=== PATIENT | female | born 2000 | race Caucasian/White ===

== ENCOUNTER 2022-04-09 10:42 | Emergency (ER) | payer OTHER, SELFPAY ==
[2022-04-09] VITALS (14 sets, daily range): BP systolic 106–123; BP diastolic 68–84; PULSE 62–102; RESP 15–19; O2SAT 100
--- NOTE | 2022-04-09 11:05 | ECG_ITS ---
Measurements Intervals [place] Rate: 68 P: 9 MI: 127 QRS: 72 QRSD: 72 T: 39 QT: 334 QTc: 357 Interpretive Statements SINUS RHYTHM NORMAL ECG NO PREVIOUS ECG AVAILABLE FOR COMPARISON Electronically Signed On 04-09-2022 11:47:59 SENIOR ENVIRONMENTAL PRACTICE LEADER by Carlitos Newby D.O.
--- NOTE | 2022-04-09 11:39 | ED.ARRPALP ---
HPI - Arrhythmia/Palpitations General Chief Complaint: Arrhythmia/Palpitations Stated Complaint: afib Time Seen by Provider: 04/09/22 11:01 History of Present Illness HPI narrative: 21-year-old female presents to the emergency room today for complaints of feeling like her heart is racing. She started having episodes of tachycardia yesterday evening. She says that she feels lightheaded and tired whenever it happens. Reports feeling dizzy at times. Denies having any chest pain. She does report that she can feel it start. She has had feelings like her heart beats fast in the past but this seems worse than what she has had before. She has never been seen or evaluated by cardiology. Currently her heartbeat is around 100 and her EKG is sinus rhythm. No significant past medical history but patient reports that she has an extensive family history of heart problems. Related Data Allergies Allergy/AdvReac Type Severity Reaction Status Date / Time No Known Allergies Allergy Verified 04/09/22 11:10 Review of Systems Review of Systems: CONSTITUTIONAL: Denies fever, chills, or sweats. CARDIOVASCULAR: as per HPI RESPIRATORY: Denies cough or dyspnea. GASTROINTESTINAL: Denies abdominal pain, nausea, vomiting, or diarrhea. GENITOURINARY: Denies dysuria or hematuria. SKIN: Denies rash or itching. MUSCULOSKELETAL: no complaints NEUROLOGIC: Reports feeling dizzy or lightheaded when heart racing Exam Narrative: GENERAL: Well-appearing, well-nourished, and in no acute distress. HEAD: Normocephalic, atraumatic. NECK: Supple. No adenopathy or masses. No carotid bruits or JVD CHEST: Clear to auscultation. No respiratory distress. No wheezes rales or rhonchi HEART: Regular rate and rhythm. No murmur heard. Normal peripheral pulses. ABDOMEN: Soft, nontender, nondistended, normal active bowel sounds. EXTREMITIES: Normal range of motion. No edema. SKIN: Warm, dry, no rash. NEURO: No focal deficits. Alert and oriented x3. PSYCH: Normal mood and affect. Course Course Emergency Course: 1300 Pt has not had any episodes of tachycardia or chest pain since arrival to ER. I have spoken to cardiology GERIATRIC AIDE, Sylwia Morataya. Agrees to see patient for follow up. Will order holter monitor and she will call cardiology to schedule. Vital Signs Vital signs: Vital Signs Pulse Rate 76 01/26/23 11:01 Respiratory Rate 19 04/09/22 11:01 Blood Pressure 123/81 04/09/22 11:01 Pulse Oximetry 100 04/09/22 11:01 Oxygen Delivery Room Air 04/09/22 11:01 Pulse Rate 76 04/09/22 11:01 Respiratory Rate 19 04/09/22 11:01 Blood Pressure 123/81 04/09/22 11:01 Pulse Oximetry 100 04/09/22 11:01 Oxygen Delivery Room Air 04/09/22 11:01 MDM - Arrhythmia/Palpitations Differential Diagnosis Differential diagnosis: Likely palpitations, anxiety, sinus tachycardia, artial fibrillation, supraventricular tachycardia and WPW Lab Data Attestation: I reviewed the patient's lab results. 04/09/22 11:59 04/09/22 11:59 Labs: Lab Results 04/09/22 04/09/22 04/09/22 Range/Units 11:59 11:59 11:59 WBC 5.2 (4.5-10.0) K/mm3 RBC 4.80 (4.2-5.4) M/mm3 Hgb 13.1 (12.0-15.0) g/dL Hct 40.4 (37.0-47.0) % MCV 84.2 (80-100) fl MCH 27.3 (26-34) pg MCHC 32.4 (32-36) g/dl RDW 13.2 (11.5-14.5) % Plt Count 260 (150-375) k/mm3 MPV 9.7 (7.4-10.4) fl Immature Gran % (Auto) 0.4 (0-0.5) % Neut % (Auto) 54.6 (45.5-73.1) % Lymph % (Auto) 36.0 (18.3-44.2) % O'Brien % (Auto) 6.7 (2.6-8.5) % Eos % (Auto) 1.7 (0-4.4) % Baso % (Auto) 0.6 (0.2-1.2) % Lymph # (Auto) 1.88 (0.9-3.2) K/mm3 O'Brien # (Auto) 0.4 (0.1-0.6) K/mm3 Eos # (Auto) 0.1 (0-0.3) K/mm3 Baso # (Auto) 0.0 (0.0-0.1) K/mm3 Abs Immat Gran (auto) 0.02 (0.00-0.031) K/mm3 Absolute Neuts (auto) 2.9 (1.3-6.7) K/mm3 Absolute Nucleated RBC 0.0 (0.0-0.012) K/mm3 Nucleated RBC % 0.0
[2022-04-09 12:26] LABS: Basophils Percent Auto 0.6 % (0.2-1.2); Eosinophils Absolute Auto 0.1 K/mm3 (0-0.3); Eosinophils Percent Auto 1.7 % (0-4.4); Hematocrit 40.4 % (37.0-47.0); Hemoglobin 13.1 g/dL (12.0-15.0); Immature Granulocyte Absolute 0.02 K/mm3 (0.00-0.031); Immature Granulocyte Percent A 0.4 % (0-0.5); Lymphocytes Absolute Auto 1.88 K/mm3 (0.9-3.2); Mean Corpuscular HGB Conc 32.4 g/dl (32-36); Mean Corpuscular Hemoglobin 27.3 pg (26-34); Mean Corpuscular Volume 84.2 fl (80-100); Mean Platelet Volume 9.7 fl (7.4-10.4); Monocytes Absolute Auto 0.4 K/mm3 (0.1-0.6); Monocytes Percent Auto 6.7 % (2.6-8.5); Neutrophils Absolute Auto 2.9 K/mm3 (1.3-6.7); Neutrophils Percent Auto 54.6 % (45.5-73.1); Platelet Count Result 260 k/mm3 (150-375); Red Cell Distribution Width 13.2 % (11.5-14.5); White Blood Count 5.2 K/mm3 (4.5-10.0)
[2022-04-09 12:32] LABS: Alanine Aminotransferase 14 U/L (6-35); Albumin Level 4.8 g/dL (3.5-5.1); Alkaline Phosphatase 54 U/L (38-126); Anion Gap 4 mmol/L (8-16); Aspartate Amino Transferase 24 U/L (14-36); Bilirubin,Total 0.5 mg/dL (0.2-1.3); Blood Urea Nitrogen 9 mg/dL (7-17); Calcium 9.1 mg/dL (8.4-10.2); Carbon Dioxide 28 mmol/L (22-30); Chloride 104 mmol/L (98-107); Estimated CRCL calculation 97 ml/min; Estimated Glomerular Filt Rate > 60; Glucose 86 mg/dL (65-110); Potassium 3.8 mmol/L (3.4-5.0); Sodium 136 mmol/L (137-145)
[2022-04-09 12:43] LABS: Amphetamine Screen Urine Negative (Negative); Barbiturate Screen Urine Negative (Negative); Benzodiazepines Screen Urine Negative (Negative); Cannabinoid Screen Urine Negative (Negative); Cocaine Screen Urine Negative (Negative); Methadone Screen Urine Negative (Negative); Opiate Screen Urine Negative (Negative); Phencyclidine Screen Urine Negative (Negative)
[2022-04-09 13:14] LABS: D Dimer 0.36 ug/mL (<0.48)
--- NOTE | 2022-04-14 11:45 | WPDHOLTEREM ---
Holter/Event Monitor Holter/Event Monitor Date of procedure: 04/09/22 Holter/Event Procedure: 24 Hr Holter Monitor Indications: Tachycardia Conclusion: 1. 24 hour holter monitor on 04/09/22. 2. [place] rhythm is sinus rhythm. HR range 44-156 bpm; average HR 71 bpm. HR at 156 bpm was at 17:18. 3. No premature supraventricular complexes. No supraventricular tachycardia. 4. No premature ventricular complexes. No ventricular tachycardia. 5. No sinoatrial or atrioventricular blocks. No significant pauses greater than 2 seconds. 6. No symptoms available for correlation.
== END 2022-04-09 14:15 | disposition home or self-care (01) ==
PROVIDERS: Emergency Provider Nurse Practitioner Family
DX: R00.0 Tachycardia, unspecified (principal)
CPT/HCPCS: 36415; 80053; 80307; 81025; 85025; 85380; 93005; 93225; 93226; 99284